=== PATIENT | male | born 1985 | race African-American/Black ===

== ENCOUNTER 2023-12-22 19:10 | Emergency (ER) | payer SELFPAY, OTHER ==
[2023-12-22] MEDS ORDERED: HYDROCODONE/APAP 7.5/325 MG TAB ONE (20:12)
--- NOTE | 2023-12-22 20:59 | RAD REPORT ---
EXAM DESCRIPTION: RAD - Lumbar Spine 3 Views - 12/22/2023 8:46 pm CLINICAL HISTORY: PAIN COMPARISON: No comparisons FINDINGS/IMPRESSION: No acute fracture. No malalignment. No significant focal degenerative changes.
--- NOTE | 2023-12-22 21:00 | RAD REPORT ---
EXAM DESCRIPTION: RAD - Hip Left 2 View - 12/22/2023 8:46 pm CLINICAL HISTORY: PAIN COMPARISON: No comparisons FINDINGS/IMPRESSION: No acute fracture. No malalignment. Left proximal hip ORIF hardware with latera l plate and screw. No hardware complications. Healed remote posttraumatic deformity. 

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
[2023-12-22] MEDS ORDERED: CYCLOBENZAPRINE 10 MG TAB ONE (21:18)
[2023-12-22 21:47] VITALS: TEMP 97.8
[2023-12-22 21:48] VITALS: BP 158/91; O2SAT 100
== END 2023-12-22 21:21 | disposition home or self-care (01) ==
LOC: ER 19:10
DX: M54.50 Low back pain, unspecified (principal); M25.552 Pain in left hip; S00.83XA Contusion of other part of head, initial encounter; V53.5XXA Driver of pick-up truck or van injured in collision with car, pick-up truck or van in traffic accident, initial encounter
CPT/HCPCS: 72100; 99284